=== PATIENT | male | born 1995 | race Caucasian/White ===

== ENCOUNTER 2022-05-13 14:21 | Emergency (ER) | payer BC, OTHER ==
[2022-05-13] MEDS: Acetaminophen 500 MG Tab PO ONE (14:51)
== END 2022-05-13 15:05 | disposition home or self-care (01) ==
LOC: KA.ED 14:21
DX: U07.1 COVID-19 (principal); Z88.0 Allergy status to penicillin
CPT/HCPCS: 99283; A9270-GY

== ENCOUNTER 2025-01-29 11:44 | Emergency (ER) | payer BC, OTHER ==
[2025-01-29] MEDS ORDERED: Sodium Chloride 0.9% 10 ML Syringe FLUSH PRN (11:51)
[2025-01-29 11:57] LABS: BASOPHILS ABSOLUTE AUTO 0.04 10^3/uL (0.00-0.10); BASOPHILS PERCENT AUTO 0.6 % (0.0-1.0); EOSINOPHILS ABSOLUTE AUTO 0.06 10^3/uL (0.10-0.30); EOSINOPHILS PERCENT AUTO 0.9 % (1.0-3.0); HEMATOCRIT 45.1 % (40.0-52.0); HEMOGLOBIN 16.4 g/dL (13.0-17.0); IMMATURE GRAN ABSOLUTE AUTO 0.01 10^3/uL (0.00-0.04); IMMATURE GRAN PERCENT AUTO 0.1 % (0.0-0.4); LYMPHOCYTES ABSOLUTE AUTO 2.93 10^3/uL (1.00-4.00); LYMPHOCYTES PERCENT AUTO 43.5 % (20.0-40.0); MEAN CORPUSCULAR HGB CONC 36.4 g/dL (32.0-36.0); MEAN CORPUSCULAR VOLUME 82.4 fL (82.0-92.0); MEAN PLATELET VOLUME 9.2 fL (7.4-10.4); MONOCYTES PERCENT AUTO 10.4 % (2.0-8.0); NEUTROPHILS ABSOLUTE AUTO 2.99 10^3/uL (2.50-7.00); NEUTROPHILS PERCENT AUTO 44.5 % (50.0-70.0); PLATELET COUNT,PLT 257 10^3/uL (150-400); RED BLOOD CELL COUNT 5.47 10^6/uL (4.50-6.00); RED CELL DISTRIBUTION WIDTH 12.1 % (11.5-14.5); WHITE BLOOD CELL COUNT,WBC 6.73 10^3/uL (5.00-10.00)
[2025-01-29 12:16] LABS: ALANINE AMINOTRANSFERASE,ALT 62 U/L (14-63); ALBUMIN 3.99 g/dL (3.40-5.00); ALKALINE PHOSPHATASE 85 U/L (46-116); ANION GAP 14.8 mmol/L (5-15); ASPARTATE AMNIOTRANSFERASE,AST 28 U/L (15-37); BILIRUBIN TOTAL 0.5 mg/dL (0.2-1.0); BLOOD UREA NITROGEN,BUN 14 mg/dL (7-18); CALCIUM 8.9 mg/dL (8.7-10.3); CARBON DIOXIDE,CO2 26.1 mmol/L (21.0-32.0); CHLORIDE,CL 101 mmol/L (98-107); CREATININE 0.85 mg/dL (0.51-1.17); EST CRCL DRUG DOSING (CG) 134.11 mL/min; GLUCOSE RANDOM 86 mg/dL (70-140); POTASSIUM,K 3.9 mmol/L (3.5-5.1); PROTEIN TOTAL,TP 7.8 g/dL (6.4-8.2); SODIUM,NA 138 mmol/L (136-145)
[2025-01-29 12:18] LABS: C-REACTIVE PROTEIN < 0.50 mg/dL (0.00-0.50); ESTIMATED GFR 119 mL/min (>=60)
[2025-01-29 12:27] LABS: B-TYPE NATRIURETIC PEPTIDE,BNP < 5 pg/mL (0-100)
== END 2025-01-29 12:46 | disposition home or self-care (01) ==
LOC: KA.ED 11:44
DX: R07.2 Precordial pain (principal); R79.89 Other specified abnormal findings of blood chemistry; Z88.0 Allergy status to penicillin; Z87.891 Personal history of nicotine dependence
CPT/HCPCS: 71045; 80053; 83880; 84484; 85025; 85379; 86140; 93005; 99285